=== PATIENT | male | born 1980 | race Caucasian/White ===

== ENCOUNTER 2022-10-26 14:18 | Outpatient (CLI) | payer BC, SELFPAY ==
[2022-10-26 21:30] LABS: Chloride* 105 mmol/L (96-114); Potassium* 4.5 mmol/L (3.6-5.1); Sodium* 141 mmol/L (135-149)
[2022-10-26 21:33] LABS: Blood Urea Nitrogen* 12 mg/dL (5-24); Calcium* 9.8 mg/dL (8.4-10.6); Carbon Dioxide* 30 mmol/L (20-32); Creatinine* 0.9 mg/dL (0.5-1.5); Estimated Glomerular Filt Rate 109 ml/min; Glucose* 88 mg/dL (60-115)
== END 2022-10-26 14:19 | disposition home or self-care (01) ==
LOC: LKVREF 14:20
PROVIDERS: PCP Emergency Medicine; Visit Provider Emergency Medicine
DX: I10 Essential (primary) hypertension (principal)
CPT/HCPCS: 80048

== ENCOUNTER 2024-06-27 15:12 | Outpatient (CLI) | payer BC, SELFPAY | END 2024-06-27 15:13 | disposition home or self-care (01) | LOC: LKVREF 15:13 | PROVIDERS: PCP Emergency Medicine; Visit Provider Emergency Medicine | DX: R10.9 Unspecified abdominal pain (principal); R07.9 Chest pain, unspecified; I10 Essential (primary) hypertension | CPT/HCPCS: 86140; 87086 ==